=== PATIENT | female | born 1985 | race Caucasian/White ===

== ENCOUNTER 2019-10-14 10:30 | Inpatient (IN) | payer BC ==
[2019-10-14] MEDS ORDERED: Nalbuphine 10 MG/ML Syringe IVPUSH PRN (10:50)
[2019-10-14] MEDS ORDERED: Sodium Chloride 0.9% 10 ML Syringe FLUSH PRN (10:50)
[2019-10-14] MEDS ORDERED: Lactated Ringers 1,000 ML IV SCH (11:00)
[2019-10-14] MEDS ORDERED: Oxytocin/Lactated Ringers 10 UNIT/1,000 ML BAG IV SCH (11:00)
--- NOTE | 2019-10-14 11:01 | PCM.LDHP ---
L&D History of Present Illness - General Date of Service: 10/14/19 Admit Problem/Dx: Patient Status Order with Admit Dx/Problem 10/14/19 10:50 Patient Status [ADT] Routine Admission Diagnosis/Problem Admission Diagnosis/Problem Source of Information: Patient History Limitations: Reports: No Limitations - History of Present Illness Introduction:: 34-year-old -0-0-1 SENTHIL 10/19/2019 at estimated gestational age of 39 weeks and 2 days presented to labor delivery with history of rupture membranes spontaneous at 0800 hrs. this morning. On rotation to labor and delivery patient 4 cm dilated 80% effaced plan delivery. Type AB+ antibody screen negative hemoglobin 13.5 hematocrit 38.1 platelets [id number], rubella immune syphilis nonreactive, hepatitis B surface antigen nonreactive, HIV negative, chlamydia GC probe none detected. Group B strep negative. On 08/01/2019 hemoglobin 12.71-hour OB glucose screen 156 antibody screen negative hour glucose tolerance test not found in chart. Plan delivery. Patient does not desire epidural at present time. Improves with: Reports: None Worsens with: Reports: None Associated Symptoms: Reports: N - Related Data Allergies/Adverse Reactions: Allergies Allergy/AdvReac Type Severity Reaction Status Date / Time No Known Allergies Allergy Verified 10/14/19 11:00 H&P Review of Systems - Review of Systems: Review Of Systems: See Below General: Reports: No Symptoms HEENT: Reports: No Symptoms Pulmonary: Reports: No Symptoms Cardiovascular: Reports: No Symptoms Gastrointestinal: Reports: No Symptoms Genitourinary: Reports: No Symptoms Musculoskeletal: Reports: No Symptoms Skin: Reports: No Symptoms Psychiatric: Reports: No Symptoms Neurological: Reports: No Symptoms Hematologic/Lymphatic: Reports: No Symptoms Immunologic: Reports: No Symptoms L&D Exam - Exam Exam: See Below - OB Specific Fundal Height In cm: 39 Contraction Duration (sec): 60 Contraction Frequency (min): 3-5 Contraction Intensity: Moderate Movement: Active Heart Tones: Present Heart Tones per Min: 145 Heart Rate (FHR) Variability: Moderate (6-25 bmp) Presentation: Vertex Estimated Weight: 8 - Bryant Score Bryant Score Cervix Position: Posterior Bryant Score Consistency: Soft Bryant Score Effacement: >80% Bryant Score Dilation: 3-4 cm Bryant Score Infant's Station: -1 ,0 Bryant Score Total: 9 - Exam General: Alert, Oriented HEENT: Conjunctiva Clear, Mucosa Moist & [place], PERRLA Neck: Supple, Trachea Midline Lungs: Clear to Auscultation, Normal Respiratory Effort Cardiovascular: Regular Rate, Regular Rhythm GI/Abdominal Exam: Normal Bowel Sounds, Soft Genitourinary: Normal external exam Back Exam: Normal Inspection, Full Range of Motion Extremities: Normal Inspection, Non-Tender, No Pedal Edema, Normal Capillary Refill Skin: Warm, Dry, Intact Psychiatric: Alert, Normal Affect, Normal Mood - Problem List (1) 39 weeks gestation of SNOMED Code(s): 28469621 ICD Code: Z3A.39 - 39 WEEKS GESTATION OF Status: Acute Current Visit: Yes Problem List Initiated/Reviewed/Updated: No Orders Last 24hrs: Active Orders 24 hr Category Date Time Status Patient Status [ADT] Routine ADT 10/14/19 10:50 Active Activity as Tolerated [RC] PFP Care 10/14/19 10:50 Active Communication Order [RC] ASDIRECTED Care 10/14/19 10:50 Active Heart Tones [RC] ASDIRECTED Care 10/14/19 10:51 Active Non Stress Test [RC] PER UNIT ROUTINE Care 10/14/19 10:50 Active Notify Provider [RC] PFP Care 10/14/19 10:50 Active Notify Provider [RC] PRN Care 10/14/19 10:50 Active Peripheral IV Care [RC] . DIRECTED Care 10/14/19 10:51 Active Vital Signs [RC] PER UNIT ROUTINE Care 10/14/19 10:50 Active Regular Diet [DIET] Diet 10/14/19 Lunch Active CBC WITH AUTO DIFF [HEME] Stat Lab 10/14/19 10:50 Ordered CORONAVIRUS COVID-19 PCR PHL Stat Lab 10/14/19 10:53 Ordered RAPID PLASMA REAGIN,RPR [CHEM] Routine Lab 10/14/19 10:50 Ordered TYPE AND SCREEN [BBK] Stat Lab 10/14/19 10:50 Ordered Lactated Ringers [Ringers, Lactated] 1,000 ml Med 10/14/19 11:00 Ordered IV ASDIRECTED Nalbuphine [Nubain] Med 10/14/19 10:50 Ordered 10 mg IVPUSH Q2H PRN Oxytocin/Lactated Ringers [Pitocin in LR 10 Units/1,000 Med 10/14/19 11:00 Ordered ML] 10 unit in 1,000 ml IV .CONTINUOUS Sodium Chloride 0.9% [Saline Flush] Med 10/14/19 10:50 Ordered 10 ml FLUSH ASDIRECTED PRN Electronic Heart Tones Ext w TOCO [WOMSER] Oth 10/14/19 10:50 Ordered Routine Electronic Heart Tones Internal [WOMSER] Per Unit Oth 10/14/19 10:50 Ordered Routine Peripheral IV Insertion Adult [OM.PC] Routine Oth 10/14/19 10:50 Ordered Resuscitation Status Routine Resus Stat 10/14/19 10:50 Ordered Medication Orders Oxytocin/Lactated Ringer's (Pitocin In Lr 10 Units/1,000 Ml) 10 unit in 1,000 mls @ 500 mls/hr IV .CONTINUOUS JESUS ALBERTO Lactated Ringer's (Ringers, Lactated) 1,000 mls @ 100 mls/hr IV ASDIRECTED JESUS ALBERTO Nalbuphine HCl (Nubain) 10 mg IVPUSH Q2H PRN PRN Reason: Pain Sodium Chloride (Saline Flush) 10 ml FLUSH ASDIRECTED PRN PRN Reason: Keep Vein Open Assessment/Plan Comment:: Plan labor and delivery.
[2019-10-14] MEDS ORDERED: Lidocaine 1% 50 ML MDV ONE (13:54)
--- NOTE | 2019-10-14 14:29 | PCM.DEL ---
L & D Note - General Info Date of Service: 10/14/19 Mother's Due Date: 10/19/19 - Delivery Note Labor: Spontaneous Other Cervical Ripening Method: spontaneous rupture of membranes at approximately 0800 this AM 10/14/2019 Delivery Outcome: Livebirth (Male liveborn 10/13/2017 at 1404 hrs. 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 nuchal cord reduced over the head APGARs 6/7) Delivery Method: Spontaneous Vaginal Delivery-Single Delivery Mode: Spontaneous Presentation: Right Occiput Anterior (MANDY) Nuchal Cord: Present (Height reduced over the head) Prep: Povidone-Iodine (Betadine Anesthesia Type: None Amniotic Fluid Description: Clear Episiotomy Type: None Laceration: 2nd Degree (Midline) Suture type: Other (Monocryl x1 ) Suture size: 3-0 Placenta: Intact, Spontaneous Cord: 3 Vessels Estimated Blood Loss: 250 Resuscitation Needed: Yes : Suctioned, Bulb Syringe, Stimulated, Warmed, [place] Used, Warmer Used (Auto Radiator Specialist Dr. Solomon called to attend to the ) Provider: Louis Aponte - General Info Date of Service: 10/14/19 Functional Status: Reports: Pain Controlled - Review of Systems General: Reports: No Symptoms HEENT: Reports: No Symptoms Pulmonary: Reports: No Symptoms Cardiovascular: Reports: No Symptoms Gastrointestinal: Reports: No Symptoms Genitourinary: Reports: No Symptoms Musculoskeletal: Reports: No Symptoms Skin: Reports: No Symptoms Neurological: Reports: No Symptoms Psychiatric: Reports: No Symptoms - Patient Data Vitals - Most Recent: Last Vital Signs Temp 97.8 F 10/14/19 10:50 Pulse 70 10/14/19 10:50 Resp 15 10/14/19 10:50 BP 130/83 10/14/19 10:50 Pulse Ox Weight - Most Recent: 167 lb Lab Results Last 24 Hours: Laboratory Results - last 24 hr 10/14/19 10/14/19 10/14/19 Range/Units 11:00 11:04 11:04 WBC 13.25 H (3.98-10.04) K/mm3 RBC 4.25 (3.98-5.22) M/mm3 Hgb 13.2 (11.2-15.7) gm/dl Hct 38.7 (34.1-44.9) % MCV 91.1 (79.4-94.8) fl MCH 31.1 (25.6-32.2) pg MCHC 34.1 (32.2-35.5) g/dl RDW Std Deviation 46.1 (36.4-46.3) fL Plt Count 188 (182-369) K/mm3 MPV 11.9 (9.4-12.3) fl Neut % (Auto) 81.5 H (34.0-71.1) % Lymph % (Auto) 10.4 L (19.3-51.7) % [place] % (Auto) 6.9 (4.7-12.5) % Eos % (Auto) 0.5 L (0.7-5.8) Baso % (Auto) 0.2 (0.1-1.2) % Neut # (Auto) 10.80 H (1.56-6.13) K/mm3 Lymph # (Auto) 1.38 (1.18-3.74) K/mm3 [place] # (Auto) 0.91 H (0.24-0.36) K/mm3 Eos # (Auto) 0.07 (0.04-0.36) K/mm3 Baso # (Auto) 0.02 (0.01-0.08) K/mm3 COVID-19 (ELROY) Negative (NEGATIVE) Blood Type AB POSITIVE Gel Antibody Screen Negative Med Orders - Current: Current Medications Oxytocin/Lactated Ringer's (Pitocin In Lr 10 Units/1,000 Ml) 10 unit in 1,000 mls @ 500 mls/hr IV .CONTINUOUS JESUS ALBERTO Last Admin: 10/14/19 14:16 Dose: 500 mls/hr Documented by: Lactated Ringer's (Ringers, Lactated) 1,000 mls @ 100 mls/hr IV ASDIRECTED JESUS ALBERTO Nalbuphine HCl (Nubain) 10 mg IVPUSH Q2H PRN PRN Reason: Pain Sodium Chloride (Saline Flush) 10 ml FLUSH ASDIRECTED PRN PRN Reason: Keep Vein Open Discontinued Medications Lidocaine HCl (Xylocaine 1%) Confirm Administered Dose 50 ml .ROUTE .STK-MED ONE Stop: 10/14/19 13:55 Last Admin: 10/14/19 14:15 Dose: 50 ml Documented by: - Exam General: Alert, Oriented HEENT: Pupils Equal, Mucous Membr. Moist/[place] Neck: Supple Lungs: Clear to Auscultation, Normal Respiratory Effort Cardiovascular: Regular Rate, Regular Rhythm GI/Abdominal Exam: Normal Bowel Sounds Extremities: Normal Inspection, Non-Tender, No Pedal Edema, Normal Capillary Refill Skin: Warm, Dry, Intact Psy/Mental Status: Alert, Normal Affect, Normal Mood - Problem List & Annotations (1) 39 weeks gestation of SNOMED Code(s): 89127507 Code(s): Z3A.39 - 39 WEEKS GESTATION OF Status: Acute Current Visit: Yes (2) Labor and delivery complicated by cord around neck, with compression, not applicable or unspecified SNOMED Code(s): 178058845 Code(s): O69.1XX0 - LABOR AND DELIVERY COMP BY CORD AROUND NECK, W COMPRSN, UNSP Status: Acute Current Visit: Yes (3) Second degree perineal laceration during delivery SNOMED Code(s): 0281908 Code(s): O70.1 - SECOND DEGREE PERINEAL LACERATION DURING DELIVERY Status: Acute Current Visit: Yes - Problem List Review Problem List Initiated/Reviewed/Updated: No - My Orders Last 24 Hours: My Active Orders 10/14/19 10:50 Patient Status [ADT] Routine Activity as Tolerated [RC] PFP Communication Order [RC] ASDIRECTED Notify Provider [RC] PFP Vital Signs [RC] PER UNIT ROUTINE Nalbuphine [Nubain] 10 mg IVPUSH Q2H PRN Sodium Chloride 0.9% [Saline Flush] 10 ml FLUSH ASDIRECTED PRN Electronic Heart Tones Ext w TOCO [WOMSER] Routine Electronic Heart Tones Internal [WOMSER] Per Unit Routine Peripheral IV Insertion Adult [OM.PC] Routine Resuscitation Status Routine 10/14/19 10:51 Peripheral IV Care [RC] . DIRECTED 10/14/19 Lunch Regular Diet [DIET] Lactated Ringers [Ringers, Lactated] 1,000 ml IV ASDIRECTED Oxytocin/Lactated Ringers [Pitocin in LR 10 Units/1,000 ML] 10 unit in 1,000 ml IV .CONTINUOUS 10/14/19 11:04 RAPID PLASMA REAGIN,RPR [CHEM] Routine - Plan Plan:: Plan labor and delivery.
[2019-10-14] MEDS ORDERED: Docusate Sodium 100 MG Cap PO PRN (14:40)
[2019-10-14] MEDS ORDERED: Witch Hazel Medicated Pads 40/Jar TOP PRN (14:40)
[2019-10-14] MEDS ORDERED: Benzocaine/Menthol 20%-0.5% Spray 56 GM Canister TOP ONE (18:12)
[2019-10-14] MEDS: Ibuprofen 600 MG Tab PO PRN (18:48)
[2019-10-14] MEDS ORDERED: Levothyroxine 25 MCG Tab PO SCH (21:00)
[2019-10-15] MEDS: Ibuprofen 600 MG Tab PO PRN ×3 (01:17→12:53)
[2019-10-15] MEDS ORDERED: Levothyroxine 25 MCG Tab PO SCH (06:15)
[2019-10-15] MEDS ORDERED: Sertraline 50 MG Tab PO SCH (09:00)
--- NOTE | 2019-10-15 10:07 | PCM.DCSUM1 ---
Discharge Summary - Hospital Course Free Text/Narrative:: [facility] L/D Delivery Note Patient Name: CAMILA JOSEPH Date of : 85 Patient Status: Inpatient Attending Provider: Louis Aponte Date: 10/14/19 14:23 Initialization Date: 10/14/19 14:23 L & D Note - General Info Date of Service: 10/14/19 Mother's Due Date: 10/19/19 - Delivery Note Labor: Spontaneous Other Cervical Ripening Method: spontaneous rupture of membranes at appr oximately 0800 this AM 10/14/2019 Delivery Outcome: Livebirth (Male liveborn 10/13/2017 at 1404 hrs. 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 nuchal cord reduced over the head APGARs 6/7) Infant Delivery Method: Spontaneous Vaginal Delivery-Single Infant Delivery Mode: Spontaneous Presentation: Right Occiput Anterior (MANDY) Nuchal Cord: Present (Height reduced over the head) Prep: Povidone-Iodine (Betadine Anesthesia Type: None Amniotic Fluid Description: Clear Episiotomy Type: None Laceration: 2nd Degree (Midline) Suture type: Other (Monocryl x1 ) Suture size: 3-0 Placenta: Intact, Spontaneous Cord: 3 Vessels Estimated Blood Loss: 250 Resuscitation Needed: Yes : Suctioned, Bulb Syringe, Stimulated, Warmed, [place] Used, Warmer Used (National Account Representative Dr. Solomon called to attend to the ) Provider: Louis Aponte - General Info Date of Service: 10/14/19 Functional Status: Reports: Pain Controlled - Review of Systems General: Reports: No Symptoms HEENT: Reports: No Symptoms Pulmonary: Reports: No Symptoms Cardiovascular: Reports: No Symptoms Gastrointestinal: Reports: No Symptoms Genitourinary: Reports: No Symptoms Musculoskeletal: Reports: No Symptoms Skin: Reports: No Symptoms Neurological: Reports: No Symptoms Psychiatric: Reports: No Symptoms - Patient Data Vitals - Most Recent: Last Vital Signs Temp 97.8 F 10/14/19 10:50 Pulse 70 10/14/19 10:50 Resp 15 10/14/19 10:50 BP 130/83 10/14/19 10:50 Pulse Ox Weight - Most Recent: 167 lb Lab Results Last 24 Hours: Laboratory Results - last 24 hr 10/14/19 10/14/19 10/14/19 Range/Units 11:00 11:04 11:04 WBC 13.25 H (3.98-10.04) K/mm3 RBC 4.25 (3.98-5.22) M/mm3 Hgb 13.2 (11.2-15.7) gm/dl Hct 38.7 (34.1-44.9) % MCV 91.1 (79.4-94.8) fl MCH 31.1 (25.6-32.2) pg MCHC 34.1 (32.2-35.5) g/dl RDW Std Deviation 46.1 (36.4-46.3) fL Plt Count 188 (182-369) K/mm3 MPV 11.9 (9.4-12.3) fl Neut % (Auto) 81.5 H (34.0-71.1) % Lymph % (Auto) 10.4 L (19.3-51.7) % [place] % (Auto) 6.9 (4.7-12.5) % Eos % (Auto) 0.5 L (0.7-5.8) Baso % (Auto) 0.2 (0.1-1.2) % Neut # (Auto) 10.80 H (1.56-6.13) K/mm3 Lymph # (Auto) 1.38 (1.18-3.74) K/mm3 [place] # (Auto) 0.91 H (0.24-0.36) K/mm3 Eos # (Auto) 0.07 (0.04-0.36) K/mm3 Baso # (Auto) 0.02 (0.01-0.08) K/mm3 COVID-19 (ELROY) Negative (NEGATIVE) Blood Type AB POSITIVE Gel Antibody Screen Negative Med Orders - Current: Current Medications Oxytocin/Lactated Ringer's (Pitocin In Lr 10 Units/1,000 Ml) 10 unit in 1,000 mls @ 500 mls/hr IV .CONTINUOUS JESUS ALBERTO Last Admin: 10/14/19 14:16 Dose: 500 mls/hr Documented by: Lactated Ringer's (Ringers, Lactated) 1,000 mls @ 100 mls/hr IV ASDIRECTED JESUS ALBERTO Nalbuphine HCl (Nubain) 10 mg IVPUSH Q2H PRN PRN Reason: Pain Sodium Chloride (Saline Flush) 10 ml FLUSH ASDIRECTED PRN PRN Reason: Keep Vein Open Discontinued Medications Lidocaine HCl (Xylocaine 1%) Confirm Administered Dose 50 ml .ROUTE .STK-MED ONE Stop: 10/14/19 13:55 Last Admin: 10/14/19 14:15 Dose: 50 ml Documented by: - Exam General: Alert, Oriented HEENT: Pupils Equal, Mucous Membr. Moist/[place] Neck: Supple Lungs: Clear to Auscultation, Normal Respiratory Effort Cardiovascular: Regular Rate, Regular Rhythm GI/Abdominal Exam: Normal Bowel Sounds Extremities: Normal Inspection, Non-Tender, No Pedal Edema, Normal Capillary Refill Skin: Warm, Dry, Intact Psy/Mental Status: Alert, Normal Affect, Normal Mood - Problem List & Annotations (1) 39 weeks gestation of SNOMED Code(s): 86212604 Code(s): Z3A.39 - 39 WEEKS GESTATION OF Status: Acute Current Visit: Yes (2) Labor and delivery complicated by cord around neck, with compression, not applicable or unspecified SNOMED Code(s): 013822880 Code(s): O69.1XX0 - LABOR AND DELIVERY COMP BY CORD AROUND NECK, W COMPRSN, UNSP Status: Acute Current Visit: Yes (3) Second degree perineal laceration during delivery SNOMED Code(s): 5273523 Code(s): O70.1 - SECOND DEGREE PERINEAL LACERATION DURING DELIVERY Status: Acute Current Visit: Yes - Problem List Review Problem List Initiated/Reviewed/Updated: No - My Orders Last 24 Hours: My Active Orders 10/14/19 10:50 Patient Status [ADT] Routine Activity as Tolerated [RC] PFP Communication Order [RC] ASDIRECTED Notify Provider [RC] PFP Vital Signs [RC] PER UNIT ROUTINE Nalbuphine [Nubain] 10 mg IVPUSH Q2H PRN Sodium Chloride 0.9% [Saline Flush] 10 ml FLUSH ASDIRECTED PRN Electronic Heart Tones Ext w TOCO [WOMSER] Routine Electronic Heart Tones Internal [WOMSER] Per Unit Routine Peripheral IV Insertion Adult [OM.PC] Routine Resuscitation Status Routine 10/14/19 10:51 Peripheral IV Care [RC] . DIRECTED 10/14/19 Lunch Regular Diet [DIET] Lactated Ringers [Ringers, Lactated] 1,000 ml IV ASDIRECTED Oxytocin/Lactated Ringers [Pitocin in LR 10 Units/1,000 ML] 10 unit in 1,000 ml IV .CONTINUOUS 10/14/19 11:04 RAPID PLASMA REAGIN,RPR [CHEM] Routine - Plan Plan:: Plan labor and delivery. HPI Initial Comments: [facility] L/D Delivery Note Patient Name: CAMILA JOSEPH Date of : 85 Patient Status: Inpatient Attending Provider: Louis Aponte Date: 10/14/19 14:23 Initialization Date: 10/14/19 14:23 L & D Note - General Info Date of Service: 10/14/19 Mother's Due Date: 10/19/19 - Delivery Note Labor: Spontaneous Other Cervical Ripening Method: spontaneous rupture of membranes at approximately 0800 this AM 10/14/2019 Delivery Outcome: Livebirth (Male liveborn 10/13/2017 at 1404 hrs. 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 nuchal cord reduced over the head APGARs 6/7) Delivery Method: Spontaneous Vaginal Delivery-Single Delivery Mode: Spontaneous Presentation: Right Occiput Anterior (MANDY) Nuchal Cord: Present (Height reduced over the head) Prep: Povidone-Iodine (Betadine Anesthesia Type: None Amniotic Fluid Description: Clear Episiotomy Type: None Laceration: 2nd Degree (Midline) Suture type: Other (Monocryl x1 ) Suture size: 3-0 Placenta: Intact, Spontaneous Cord: 3 Vessels Estimated Blood Loss: 250 Resuscitation Needed: Yes [place]: Suctioned, Bulb Syringe, Stimulated, Warmed, [place] Used, Warmer Used (National Account Representative Dr. Solomon called to attend to the ) Provider: Louis Aponte - General Info Date of Service: 10/14/19 Functional Status: Reports: Pain Controlled - Review of Systems General: Reports: No Symptoms HEENT: Reports: No Symptoms Pulmonary: Reports: No Symptoms Cardiovascular: Reports: No Symptoms Gastrointestinal: Reports: No Symptoms Genitourinary: Reports: No Symptoms Musculoskeletal: Reports: No Symptoms Skin: Reports: No Symptoms Neurological: Reports: No Symptoms Psychiatric: Reports: No Symptoms - Patient Data Vitals - Most Recent: Last Vital Signs Temp 97.8 F 10/14/19 10:50 Pulse 70 10/14/19 10:50 Resp 15 10/14/19 10:50 BP 130/83 10/14/19 10:50 Pulse Ox Weight - Most Recent: 167 lb Lab Results Last 24 Hours: Laboratory Results - last 24 hr 10/14/19 10/14/19 10/14/19 Range/Units 11:00 11:04 11:04 WBC 13.25 H (3.98-10.04) K/mm3 RBC 4.25 (3.98-5.22) M/mm3 Hgb 13.2 (11.2-15.7) gm/dl Hct 38.7 (34.1-44.9) % MCV 91.1 (79.4-94.8) fl MCH 31.1 (25.6-32.2) pg MCHC 34.1 (32.2-35.5) g/dl RDW Std Deviation 46.1 (36.4-46.3) fL Plt Count 188 (182-369) K/mm3 MPV 11.9 (9.4-12.3) fl Neut % (Auto) 81.5 H (34.0-71.1) % Lymph % (Auto) 10.4 L (19.3-51.7) % [place] % (Auto) 6.9 (4.7-12.5) % Eos % (Auto) 0.5 L (0.7-5.8) Baso % (Auto) 0.2 (0.1-1.2) % Neut # (Auto) 10.80 H (1.56-6.13) K/mm3 Lymph # (Auto) 1.38 (1.18-3.74) K/mm3 [place] # (Auto) 0.91 H (0.24-0.36) K/mm3 Eos # (Auto) 0.07 (0.04-0.36) K/mm3 Baso # (Auto) 0.02 (0.01-0.08) K/mm3 COVID-19 ([place]) Negative (NEGATIVE) Blood Type AB POSITIVE Gel Antibody Screen Negative Med Orders - Current: Current Medications Oxytocin/Lactated Ringer's (Pitocin In Lr 10 Units/1,000 Ml) 10 unit in 1,000 mls @ 500 mls/hr IV .CONTINUOUS JESUS ALBERTO Last Admin: 10/14/19 14:16 Dose: 500 mls/hr Documented by: Lactated Ringer's (Ringers, Lactated) 1,000 mls @ 100 mls/hr IV ASDIRECTED JESUS ALBERTO Nalbuphine HCl (Nubain) 10 mg IVPUSH Q2H PRN PRN Reason: Pain Sodium Chloride (Saline Flush) 10 ml FLUSH ASDIRECTED PRN PRN Reason: Keep Vein Open Discontinued Medications Lidocaine HCl (Xylocaine 1%) Confirm Administered Dose 50 ml .ROUTE .STK-MED ONE Stop: 10/14/19 13:55 Last Admin: 10/14/19 14:15 Dose: 50 ml Documented by: - Exam General: Alert, Oriented HEENT: Pupils Equal, Mucous Membr. Moist/[place] Neck: Supple Lungs: Clear to Auscultation, Normal Respiratory Effort Cardiovascular: Regular Rate, Regular Rhythm GI/Abdominal Exam: Normal Bowel Sounds Extremities: Normal Inspection, Non-Tender, No Pedal Edema, Normal Capillary Refill Skin: Warm, Dry, Intact Psy/Mental Status: Alert, Normal Affect, Normal Mood - Problem List & Annotations (1) 39 weeks gestation of SNOMED Code(s): 02005736 Code(s): Z3A.39 - 39 WEEKS GESTATION OF Status: Acute Current Visit: Yes (2) Labor and delivery complicated by cord around neck, with compression, not applicable or unspecified SNOMED Code(s): 048633452 Code(s): O69.1XX0 - LABOR AND DELIVERY COMP BY CORD AROUND NECK, W COMPRSN, UNSP Status: Acute Current Visit: Yes (3) Second degree perineal laceration during delivery SNOMED Code(s): 4790477 Code(s): O70.1 - SECOND DEGREE PERINEAL LACERATION DURING DELIVERY Status: Acute Current Visit: Yes - Problem List Review Problem List Initiated/Reviewed/Updated: No - My Orders Last 24 Hours: My Active Orders 10/14/19 10:50 Patient Status [ADT] Routine Activity as Tolerated [RC] PFP Communication Order [RC] ASDIRECTED Notify Provider [RC] PFP Vital Signs [RC] PER UNIT ROUTINE Nalbuphine [Nubain] 10 mg IVPUSH Q2H PRN Sodium Chloride 0.9% [Saline Flush] 10 ml FLUSH ASDIRECTED PRN Electronic Heart Tones Ext w TOCO [WOMSER] Routine Electronic Heart Tones Internal [WOMSER] Per Unit Routine Peripheral IV Insertion Adult [OM.PC] Routine Resuscitation Status Routine 10/14/19 10:51 Peripheral IV Care [RC] . DIRECTED 10/14/19 Lunch Regular Diet [DIET] Lactated Ringers [Ringers, Lactated] 1,000 ml IV ASDIRECTED Oxytocin/Lactated Ringers [Pitocin in LR 10 Units/1,000 ML] 10 unit in 1,000 ml IV .CONTINUOUS 10/14/19 11:04 RAPID PLASMA REAGIN,RPR [CHEM] Routine - Plan Plan:: Plan labor and delivery. Brief History: [facility] LIVE . L/D Delivery Note. Patient Name: Sarthak JOSEPH Record Number: [id number]. Date of : 85Patient Status: Inpatient. Attending Provider: Louis Aponte Number: [id number]. Date: 10/14/19 14:23Initialization Date: 10/14/19 14:23. L & D Note. - General Info. Date of Service: 10/14/19. Mother's Due Date: 10/19/19. - Delivery Note. Labor: Spontaneous. Other Cervical Ripening Method: spontaneous rupture of membranes at approximately 0800 this AM 10/14/2019. Delivery Outcome: Livebirth (Male liveborn 10/13/2017 at 1404 hrs. 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 nuchal cord reduced over the head APGARs 6/7). Infant Delivery Method: Spontaneous Vaginal Delivery-Single. Delivery Mode: Spontaneous. Presentation: Right Occiput Anterior (MANDY). Nuchal Cord: Present (Height reduced over the head). Prep: Povidone-Iodine (Betadine. Anesthesia Type: None. Amniotic Fluid Description: Clear. Episiotomy Type: None. Laceration: 2nd Degree (Midline). Suture type: Other (Monocryl x1 ). Suture size: 3-0. Placenta: Intact, Spontaneous. Cord: 3 Vessels. Estimated Blood Loss: 250. Resuscitation Needed: Yes. : Suctioned, Bulb Syringe, Stimulated, Warmed, [place] Used, Warmer Used (National Account Representative Dr. Solomon called to attend to the ). Provider: Louis Aponte. - General Info. Date of Service: 10/14/19. Functional Status: Reports: Pain Controlled. - Review of Systems. General: Reports: No Symptoms. HEENT: Reports: No Symptoms. Pulmonary: Reports: No Symptoms. Cardiovascular: Reports: No Symptoms. Gastrointestinal: Reports: No Symptoms. Genitourinary: Reports: No Symptoms. Musculoskeletal: Reports: No Symptoms. Skin: Reports: No Symptoms. Neurological: Reports: No Symptoms. Psychiatric: Reports: No Symptoms. - Patient Data. Vitals - Most Recent: Last Vital Signs. Temp 97.8 F 10/14/19 10:50. Pulse 70 10/14/19 10:50. Resp 15 10/14/19 10:50. BP 130/83 10/14/19 10:50. Pulse Ox. Weight - Most Recent: 167 lb. Lab Results Last 24 Hours: Laboratory Results - last 24 hr. 10/14/2007/10/2007Range/Units. 11:0011:0411:04. WBC 13.25 H (3.98-10.04) K/mm3. RBC 4.25 (3.98-5.22) M/mm3. Hgb 13.2 (11.2-15.7) gm/dl. Hct 38.7 (34.1-44.9) %. MCV 91.1 (79.4-94.8) fl. MCH 31.1 (25.6-32.2) pg. MCHC 34.1 (32.2-35.5) g/dl. RDW Std Deviation 46.1 (36.4-46.3) fL. Plt Count 188 (182-369) K/mm3. MPV 11.9 (9.4-12.3) fl. Neut % (Auto) 81.5 H (34.0-71.1) %. Lymph % (Auto) 10.4 L (19.3-51.7) %. [place] % (Auto) 6.9 (4.7-12.5) %. Eos % (Auto) 0.5 L (0.7-5.8). Baso % (Auto) 0.2 (0.1-1.2) %. Neut # (Auto) 10.80 H (1.56-6.13) K/mm3. Lymph # (Auto) 1.38 (1.18-3.74) K/mm3. [place] # (Auto) 0.91 H (0.24-0.36) K/mm3. Eos # (Auto) 0.07 (0.04-0.36) K/mm3. Baso # (Auto) 0.02 (0.01-0.08) K/mm3. COVID-19 ([place]Y) Negative (NEGATIVE). Blood Type AB POSITIVE. Gel Antibody Screen Negative. Med Orders - Current: Current Medications. Oxytocin/Lactated Ringer's (Pitocin In Lr 10 Units/1,000 Ml) 10 unit in 1,000 mls @ 500 mls/hr IV .CONTINUOUS JESUS ALBERTO. Last Admin: 10/14/19 14:16 Dose: 500 mls/hr. Documented by: Lactated Ringer's (Ringers, Lactated) 1,000 mls @ 100 mls/hr IV ASDIRECTED JESUS ALBERTO. Nalbuphine HCl (Nubain) 10 mg IVPUSH Q2H PRN. PRN Reason: Pain. Sodium Chloride (Saline Flush) 10 ml FLUSH ASDIRECTED PRN. PRN Reason: Keep Vein Open. Discontinued Medications. Lidocaine HCl (Xylocaine 1%) Confirm Administered Dose 50 ml .ROUTE .STK-MED ONE. Stop: 10/14/19 13:55. Last Admin: 10/14/19 14:15 Dose: 50 ml. Documented by: - Exam. General: Alert, Oriented. HEENT: Pupils Equal, Mucous Membr. Moist/[place]. Neck: Supple. Lungs: Clear to Auscultation, Normal Respiratory Effort. Cardiovascular: Regular Rat e, Regular Rhythm. GI/Abdominal Exam: Normal Bowel Sounds. Extremities: Normal Inspection, Non-Tender, No Pedal Edema, Normal Capillary Refill. Skin: Warm, Dry, Intact. Psy/Mental Status: Alert, Normal Affect, Normal Mood. - Problem List & Annotations. (1) 39 weeks gestation of . SNOMED Code(s): 75492832. Code(s): Z3A.39 - 39 WEEKS GESTATION OF Status: Acute Current Visit: Yes. (2) Labor and delivery complicated by cord around neck, with compression, not applicable or unspecified. SNOMED Code(s): 361634787. Code(s): O69.1XX0 - LABOR AND DELIVERY COMP BY CORD AROUND NECK, W COMPRSN, UNSP Status: Acute Current Visit: Yes. (3) Second degree perineal laceration during delivery. SNOMED Code(s): 7952614. Code(s): O70.1 - SECOND DEGREE PERINEAL LACERATION DURING DELIVERY Status: Acute Current Visit: Yes. - Problem List Review. Problem List Initiated/Reviewed/Updated: No. - My Orders. Last 24 Hours: My Active Orders. 10/14/19 10:50. Patient Status [ADT] Routine. Activity as Tolerated [RC] PFP. Communication Order [RC] ASDIRECTED. Notify Provider [RC] PFP. Vital Signs [RC] PER UNIT ROUTINE. Nalbuphine [Nubain] 10 mg IVPUSH Q2H PRN. Sodium Chloride 0.9% [Saline Flush] 10 ml FLUSH ASDIRECTED PRN. Electronic Heart Tones Ext w TOCO [WOMSER] Routine. Electronic Heart Tones Internal [WOMSER] Per Unit Routine. Peripheral IV Insertion Adult [OM.PC] Routine. Resuscitation Status Routine. 10/14/19 10:51. Peripheral IV Care [RC] . DIRECTED. 10/14/19 Lunch. Regular Diet [DIET]. Lactated Ringers [Ringers, Lactated] 1,000 ml IV ASDIRECTED. Oxytocin/Lactated Ringers [Pitocin in LR 10 Units/1,000 ML] 10 unit in 1,000 ml IV .CONTINUOUS. 10/14/19 11:04. RAPID PLASMA REAGIN,RPR [CHEM] Routine. - Plan. Plan:: Plan labor and delivery. Diagnosis: Stroke: No - Discharge Data Discharge Date: 10/15/19 Discharge Disposition: Home, Self-Care 01 Condition: Good - Referral to Home Health Primary Care Physician: Angelica Bryant MD - Discharge Diagnosis/Problem(s) (1) 39 weeks gestation of SNOMED Code(s): 48894746 ICD Code: Z3A.39 - 39 WEEKS GESTATION OF Status: Acute Current Visit: Yes (2) Labor and delivery complicated by cord around neck, with compression, not applicable or unspecified SNOMED Code(s): 037004462 ICD Code: O69.1XX0 - LABOR AND DELIVERY COMP BY CORD AROUND NECK, W COMPRSN, UNSP Status: Acute Current Visit: Yes (3) Second degree perineal laceration during delivery SNOMED Code(s): 9566554 ICD Code: O70.1 - SECOND DEGREE PERINEAL LACERATION DURING DELIVERY Status: Acute Current Visit: Yes - Patient Summary/Data Complications: None Consults: None Hospital Course: Uneventful - Patient Instructions Diet: Usual Diet as Tolerated Driving: Do Not Drive (X48 hours) Showering/Bathing: May Shower Notify Provider of: Fever, Increased Pain, Swelling and Redness, Drainage, Nausea and/or Vomiting - Discharge Plan *PRESCRIPTION DRUG MONITORING PROGRAM REVIEWED*: Not Applicable *COPY OF PRESCRIPTION DRUG MONITORING REPORT IN PATIENT CHARLES: Not Applicable Home Medications: Home Meds Docosahexaenoic Acid [ Dha] 1 cap PO DAILY 10/14/19 [History] Levothyroxine Sodium [Synthroid] 12 mcg PO BEDTIME 10/14/19 [History] Sertraline [Zoloft] 100 mg PO DAILY 10/14/19 [History] Docusate Sodium [Colace] 100 mg PO BID PRN cap 10/15/19 [Rx] Ibuprofen [Motrin] 600 mg PO Q6H PRN tablet 10/15/19 [Rx] witqamar Lyndsay [Tucks] 1 pad TOP ASDIRECTED PRN pad 10/15/19 [Rx] Referrals: Angelica Bryant MD [Primary Care Provider] - (Will call Wednesday for appointment to see Dr. Bryant) - Discharge Summary/Plan Comment DC Time >30 min.: No - Patient Data Vitals - Most Recent: Last Vital Signs Temp 98.2 F 10/14/19 21:57 Pulse 90 10/14/19 21:57 Resp 14 10/14/19 21:57 BP 122/62 10/14/19 21:57 Pulse Ox 96 10/14/19 21:57 Weight - Most Recent: 167 lb I&O - Last 24 hours: Intake & Output 10/14/19 10/15/19 10/15/19 22:59 06:59 14:59 Intake Total 1000 Balance 1000 Lab Results - Last 24 hrs: Laboratory Results - last 24 hr 10/14/19 10/14/19 10/14/19 Range/Units 11:00 11:04 11:04 WBC 13.25 H (3.98-10.04) K/mm3 RBC 4.25 (3.98-5.22) M/mm3 Hgb 13.2 (11.2-15.7) gm/dl Hct 38.7 (34.1-44.9) % MCV 91.1 (79.4-94.8) fl MCH 31.1 (25.6-32.2) pg MCHC 34.1 (32.2-35.5) g/dl RDW Std Deviation 46.1 (36.4-46.3) fL Plt Count 188 (182-369) K/mm3 MPV 11.9 (9.4-12.3) fl Neut % (Auto) 81.5 H (34.0-71.1) % Lymph % (Auto) 10.4 L (19.3-51.7) % [place] % (Auto) 6.9 (4.7-12.5) % Eos % (Auto) 0.5 L (0.7-5.8) Baso % (Auto) 0.2 (0.1-1.2) % Neut # (Auto) 10.80 H (1.56-6.13) K/mm3 Lymph # (Auto) 1.38 (1.18-3.74) K/mm3 [place] # (Auto) 0.91 H (0.24-0.36) K/mm3 Eos # (Auto) 0.07 (0.04-0.36) K/mm3 Baso # (Auto) 0.02 (0.01-0.08) K/mm3 RPR Non-reactive (NONREACTIVE) COVID-19 ([place]Y) Negative (NEGATIVE) Blood Type Gel Antibody Screen 10/14/19 10/15/19 Range/Units 11:04 05:23 WBC 10.81 H (3.98-10.04) K/mm3 RBC 3.89 L (3.98-5.22) M/mm3 Hgb 11.8 (11.2-15.7) gm/dl Hct 35.9 (34.1-44.9) % MCV 92.3 (79.4-94.8) fl MCH 30.3 (25.6-32.2) pg MCHC 32.9 (32.2-35.5) g/dl RDW Std Deviation 46.9 H (36.4-46.3) fL Plt Count 164 L (182-369) K/mm3 MPV 12.0 (9.4-12.3) fl Neut % (Auto) 71.1 (34.0-71.1) % Lymph % (Auto) 20.4 (19.3-51.7) % [place] % (Auto) 6.8 (4.7-12.5) % Eos % (Auto) 1.1 (0.7-5.8) Baso % (Auto) 0.1 (0.1-1.2) % Neut # (Auto) 7.68 H (1.56-6.13) K/mm3 Lymph # (Auto) 2.21 (1.18-3.74) K/mm3 [place] # (Auto) 0.74 H (0.24-0.36) K/mm3 Eos # (Auto) 0.12 (0.04-0.36) K/mm3 Baso # (Auto) 0.01 (0.01-0.08) K/mm3 RPR (NONREACTIVE) COVID-19 ([place]Y) (NEGATIVE) Blood Type AB POSITIVE Gel Antibody Screen Negative Med Orders - Current: Current Medications Docusate Sodium (Colace) 100 mg PO BID PRN PRN Reason: Constipation Last Admin: 10/15/19 07:06 Dose: 100 mg Documented by: Ibuprofen (Motrin) 600 mg PO Q4H PRN PRN Reason: Pain Last Admin: 10/15/19 07:05 Dose: 600 mg Documented by: Levothyroxine Sodium (Levothyroxine) 12.5 mcg PO [facility] Last Admin: 10/15/19 06:15 Dose: 12.5 mcg Documented by: Sertraline HCl (Zoloft) 100 mg PO DAILY [facility] Last Admin: 10/15/19 09:16 Dose: Not Given Documented by: Yun Enciso (Tucks) 1 pad TOP ASDIRECTED PRN PRN Reason: Perineal Comfort Measure Last Admin: 10/14/19 16:33 Dose: 1 pad Documented by: Discontinued Medications Benzocaine/Menthol (Dermoplast Pain Relief [place]) 1 gm TOP ONETIME ONE Stop: 10/14/19 18:13 Last Admin: 10/14/19 18:47 Dose: 1 can Documented by: Oxytocin/Lactated Ringer's (Pitocin In Lr 10 Units/1,000 Ml) 10 unit in 1,000 mls @ 500 mls/hr IV .CONTINUOUS JESUS ALBERTO Last Admin: 10/14/19 14:16 Dose: 500 mls/hr Documented by: Lactated Ringer's (Ringers, Lactated) 1,000 mls @ 100 mls/hr IV ASDIRECTED JESUS ALBERTO Levothyroxine Sodium (Levothyroxine) 12.5 mcg PO BEDTIME JESUS ALBERTO Lidocaine HCl (Xylocaine 1%) Confirm Administered Dose 50 ml .ROUTE .STK-MED ONE Stop: 10/14/19 13:55 Last Admin: 10/14/19 14:15 Dose: 50 ml Documented by: Nalbuphine HCl (Nubain) 10 mg IVPUSH Q2H PRN PRN Reason: Pain Sodium Chloride (Saline Flush) 10 ml FLUSH ASDIRECTED PRN PRN Reason: Keep Vein Open
== END 2019-10-15 15:20 | disposition home or self-care (01) | DRG 560 ==
LOC: JD.OBCHECK 10:30 → JD.OB 10:30 → JD.OBCHECK 10:50 → JD.OB 10:50 → OBSVTOIN 14:04 → JD.OB 14:05
PROVIDERS: ADMIT Obstetrics & Gynecology; ATTEND Obstetrics & Gynecology
PROC: 10E0XZZ Delivery of Products of Conception, External Approach (ICD-10-PCS; principal; 2019-10-14)
PROC: 0KQM0ZZ Repair Perineum Muscle, Open Approach (ICD-10-PCS; 2019-10-14)
DX: O69.1XX0 Labor and delivery complicated by cord around neck, with compression, not applicable or unspecified (principal); Z3A.39 39 weeks gestation of pregnancy; Z37.0 Single live birth; O70.1 Second degree perineal laceration during delivery; Z11.59 Encounter for screening for other viral diseases
CPT/HCPCS: 36415; 59025; 59409; 85025; 86592; 86850; 86900; 86901; A9270-GY; J2001; J2590; U0002